=== PATIENT | male | born 1960 | race Caucasian/White ===

== ENCOUNTER 2018-05-01 11:02 | Emergency (ER) | payer MEDICAID ==
[~2018-05-01] VITALS: Ht 182.9 cm; Wt 81.7 kg
[~2018-05-01 11:02] MED LIST: ADV50100 IH; CARI350T PO; NORCO10T PO; TIOT18CA7 IH
[2018-05-01 11:14] VITALS: BP 145/85
[2018-05-01] MEDS ORDERED: neomy sulf/polymyx B sulf/HC 10ml otic suspension RIGHT EAR ONE (13:05)
== END 2018-05-01 13:24 | disposition home or self-care (01) ==
LOC: ER 11:02
DX: T16.1XXA Foreign body in right ear, initial encounter (principal); J44.9 Chronic obstructive pulmonary disease, unspecified; G89.29 Other chronic pain; M54.9 Dorsalgia, unspecified; F17.200 Nicotine dependence, unspecified, uncomplicated; Z98.890 Other specified postprocedural states; Z79.899 Other long term (current) drug therapy; Y92.9 Unspecified place or not applicable
CPT/HCPCS: 69200; 99284

== ENCOUNTER 2019-01-05 18:00 | Inpatient (IN) | payer MEDICAID ==
[~2019-01-05] VITALS: Ht 185.4 cm; Wt 86.4 kg
[~2019-01-05 18:00] MED LIST changes: +NAPR-56 PO
[2019-01-05 18:58] LABS: BASOPHILS # (AUTO) 0.1 X10'3 (0-0.2); BASOPHILS % (AUTO) 1.4 % (0-1); EOSINOPHILS # (AUTO) 0.1 X10'3 (0-0.9); EOSINOPHILS % (AUTO) 0.7 % (0-6); HEMATOCRIT 43.2 % (42.0-52.0); HEMOGLOBIN 14.7 g/dl (14.0-17.9); LYMPHOCYTES # (AUTO) 0.2 X10'3 (1.1-4.8); LYMPHOCYTES % (AUTO) 2.8 % (21-51); MEAN CORPUSCULAR VOLUME 94.2 FL (78-98); MEAN PLATELET VOLUME 8.1 FL (7.4-10.4); MONOCYTES # (AUTO) 1.1 X10'3 (0-0.9); MONOCYTES % (AUTO) 11.9 % (2-12); NEUTROPHILS # (AUTO) 7.4 X10'3 (1.8-7.7); NEUTROPHILS % (AUTO) 83.2 % (42-75); PLATELET COUNT 218 X10'3 (140-440); RED BLOOD COUNT 4.59 X10'6 (4.70-6.10); WHITE BLOOD COUNT 8.9 X10'3 (4.5-11.0)
[2019-01-05 19:10] LABS: ALANINE AMINOTRANSFERASE 17 U/L (12-78); ALBUMIN 3.6 G/DL (3.4-5.0); ALBUMIN/GLOBULIN RATIO 1.1 (1.1-1.5); ALKALINE PHOSPHATASE 68 IU/L (46-116); ANION GAP 8 (8-16); ASPARTATE AMINO TRANSFERASE 28 U/L (10-37); BILIRUBIN,TOTAL 0.3 MG/DL (0.1-1.0); BLOOD UREA NITROGEN 23 MG/DL (7-18); BUN/CREATININE RATIO 25.8 (5.4-32.0); CALCIUM 8.7 MG/DL (8.5-10.1); CHLORIDE 103 MMOL/L (99-107); CREATININE 0.89 MG/DL (0.60-1.10); GLUCOSE 128 MG/DL (70-104); PARTIAL THROMBOPLASTIN TIME 32 SECONDS (22-32); POTASSIUM 3.9 MMOL/L (3.5-5.1); PROTHROMBIN TIME 9.9 SECONDS (9.0-12.0); SODIUM 138 MMOL/L (135-145); TOTAL CARBON DIOXIDE 27.5 MMOL/L (24-32); TOTAL PROTEIN 6.9 G/DL (6.4-8.2); eGFR 87 ML/MIN
[2019-01-05] MEDS ORDERED: azithromycin/NS 500mg/250ml 250 ML IV ONE (19:10)
[2019-01-05] MEDS ORDERED: normal saline 1000ML IV soln IVB ONE (19:10)
[2019-01-05] MEDS ORDERED: methylPREDNISolone sod succ 125mg/2ml vial IV ONE (19:10)
[2019-01-05] MEDS ORDERED: albuterol 2.5 MG/3 ML nebule CONTNEB PRN (19:10)
[2019-01-05 20:03] LABS: CLARITY,URINE CLEAR (Clear); COLOR,URINE YELLOW (Yellow); GLUCOSE, URINE NEGATIVE (Neg); KETONES,URINE NEGATIVE (Neg); LEUKOCYTE ESTERASE ,URINE NEGATIVE (Neg); NITRITES, URINE NEGATIVE (Neg); OCCULT BLOOD,URINE NEGATIVE (Neg); PROTEIN,URINE TRACE mg/dl (Neg); UROBILINOGEN,URINE 0.2 E.U/dL (0.2-1.0)
[2019-01-05 20:15] LABS: UA COLLECTION TYPE VOIDED
[2019-01-05 20:16] LABS: BACTERIA,URINE FEW /HPF (Neg); RBC,URINE 0-2 /HPF (0-2); SQUAMOUS EPITHELIAL CELL,UR FEW /LPF (FEW); WBC,URINE 0-4 /HPF (0-4)
[2019-01-05] MEDS ORDERED: magnesium 4gm in 100ml NS 100 ML IV PRN (20:20)
[2019-01-05] MEDS ORDERED: potassium Cl 20 mEq SR tablet PO PRN ×2 (20:20)
[2019-01-05] MEDS ORDERED: mag hydrox/Alum hydrox/simeth 30ml oral suspension PO PRN (20:20)
[2019-01-05] MEDS ORDERED: acetaminophen 325mg tablet PO PRN ×2 (20:20)
[2019-01-05] MEDS ORDERED: ondansetron/PF 4mg/2ml inj IV PRN (20:20)
[2019-01-05] MEDS ORDERED: magnesium hydroxide 30ml (MOM) UD suspension PO PRN (20:20)
[2019-01-05] MEDS ORDERED: magnesium 2GM in 50ml NS 50 ML IV PRN (20:20)
[2019-01-05] MEDS ORDERED: magnesium Cl slow-release 64mg tablet PO PRN (20:20)
[2019-01-05] MEDS ORDERED: potassium Cl 40MEQ/NS 500ml 500 ML IV PRN ×2 (20:20)
[2019-01-05] MEDS ORDERED: FLUT100D2 INH (20:45)
[2019-01-05] MEDS ORDERED: CEFU500T66 PO (20:45)
[2019-01-05] MEDS ORDERED: PHE12.5R RC (20:45)
[2019-01-05] MEDS ORDERED: P EP PO (20:45)
--- NOTE | 2019-01-05 20:59 | NUR ---
PT PLACED ON HOSPITAL BED FOR COMFORT
--- NOTE | 2019-01-05 21:31 | NUR ---
cardiac us underway w/ dr Valdez & hospitalist.
--- NOTE | 2019-01-05 21:48 | NUR ---
assisted pt to bathroom; returned readily to bed. Orthostatic dizziness noted from seated to standing position, which passed shortly. Also increased sob observed with walk to bathroom. BS commode to be obtained going forward to reduce incidence of sob with toileting hygiene.
[2019-01-05] MEDS ORDERED: ipratropium/albuterol 3ml nebule NEB PRN (22:50)
[2019-01-05] MEDS ORDERED: nicotine 21mg patch - 24 hr TD ONE (22:50)
[2019-01-05] MEDS: ipratropium/albuterol 3ml nebule NEB SCH (23:26)
--- NOTE | 2019-01-06 00:27 | NUR ---
Spoke w/ Shiraz, Pharmacist who will be retiming Nicotine Patch to the AM as pt is asleep.
[2019-01-06] MEDS: methylPREDNISolone sod succ/PF 40mg inj. IV SCH ×3 (00:41→18:39)
--- NOTE | 2019-01-06 02:27 | NUR ---
Sister Tamera: [phone].
[2019-01-06] MEDS: ipratropium/albuterol 3ml nebule NEB SCH ×6 (03:08→23:43)
[2019-01-06] MEDS: K and/or MAG REPLACEMENT MC SCH (08:00)
[2019-01-06] MEDS ORDERED: nicotine 21mg patch - 24 hr TD ONE (08:00)
[2019-01-06] MEDS ORDERED: naproxen 500mg tablet PO SCH (08:00)
[2019-01-06] MEDS: proMETHazine 12.5mg rectal suppository RC SCH ×2 (08:00→20:00)
[2019-01-06 08:26] LABS: BASOPHILS % (AUTO) 0.4 % (0-1); EOSINOPHILS % (AUTO) 0 % (0-6); HEMATOCRIT 41.3 % (42.0-52.0); HEMOGLOBIN 14.2 g/dl (14.0-17.9); LYMPHOCYTES # (AUTO) 0.2 X10'3 (1.1-4.8); LYMPHOCYTES % (AUTO) 2.5 % (21-51); MEAN CORPUSCULAR HEMOGLOBIN 32.7 PG (27.0-31.0); MEAN CORPUSCULAR HGB CONC 34.5 g/dL (33.0-36.5); MEAN CORPUSCULAR VOLUME 94.8 FL (78-98); MEAN PLATELET VOLUME 8.3 FL (7.4-10.4); MONOCYTES # (AUTO) 0.2 X10'3 (0-0.9); MONOCYTES % (AUTO) 2.6 % (2-12); NEUTROPHILS # (AUTO) 8.9 X10'3 (1.8-7.7); NEUTROPHILS % (AUTO) 94.5 % (42-75); PLATELET COUNT 201 X10'3 (140-440); RED BLOOD COUNT 4.36 X10'6 (4.70-6.10); RED CELL DISTRIBUTION WIDTH 14.2 % (11.5-14.5); WHITE BLOOD COUNT 9.4 X10'3 (4.5-11.0)
[2019-01-06] MEDS: enoxaparin 40mg/0.4ml syringe SQ SCH (08:38)
[2019-01-06] MEDS: levoFLOXACIN-Levaquin 500mg/D5 100 ML IV SCH (08:45)
[2019-01-06] MEDS: HYDROcodone/acetaminophen 5mg/325mg tablet PO PRN ×2 (08:45→17:18)
[2019-01-06 08:50] LABS: ALBUMIN 3.3 G/DL (3.4-5.0); ANION GAP 11 (8-16); BLOOD UREA NITROGEN 16 MG/DL (7-18); BUN/CREATININE RATIO 19.8 (5.4-32.0); CALCIUM 8.6 MG/DL (8.5-10.1); CHLORIDE 104 MMOL/L (99-107); CREATININE 0.81 MG/DL (0.60-1.10); GLUCOSE 183 MG/DL (70-104); POTASSIUM 3.8 MMOL/L (3.5-5.1); SODIUM 141 MMOL/L (135-145); TOTAL CARBON DIOXIDE 26.3 MMOL/L (24-32); eGFR > 90 ML/MIN
[2019-01-06] MEDS: HYDROcodone/acetaminophen 10/325mg tab PO PRN ×2 (13:15→20:45)
[2019-01-06] MEDS ORDERED: naproxen 500mg tablet PO PRN (14:25)
--- NOTE | 2019-01-06 18:19 | NUR ---
attempted to call report to surgical unit, no nurse available to take report until after shift change
--- NOTE | 2019-01-06 19:00 | NUR ---
PATIENT ADMITTED TO ROOM 349A FROM ER FOR ACUTE COPD EXACERBATION. PLACED COMFORTABLE IN BED. VITAL SIGNS TAKEN AND RECORDED..
[2019-01-06 20:00] VITALS: BP 150/84
[2019-01-06] MEDS ORDERED: [UNRECOGNIZED DRUG - OTHER] PO SCH (21:00)
[2019-01-06] MEDS ORDERED: P EPHED HCL PO SCH (21:00)
[2019-01-07] VITALS: BP 135/80
[2019-01-07] MEDS: methylPREDNISolone sod succ/PF 40mg inj. IV SCH ×4 (02:00→23:34)
[2019-01-07] MEDS: ipratropium/albuterol 3ml nebule NEB SCH ×5 (02:45→23:30)
[2019-01-07 06:18] LABS: BASOPHILS % (AUTO) 0.1 % (0-1); EOSINOPHILS % (AUTO) 0 % (0-6); HEMATOCRIT 41.4 % (42.0-52.0); HEMOGLOBIN 13.5 g/dl (14.0-17.9); LYMPHOCYTES # (AUTO) 0.2 X10'3 (1.1-4.8); LYMPHOCYTES % (AUTO) 1.4 % (21-51); MEAN CORPUSCULAR HEMOGLOBIN 31.4 PG (27.0-31.0); MEAN CORPUSCULAR HGB CONC 32.6 g/dL (33.0-36.5); MEAN CORPUSCULAR VOLUME 96.3 FL (78-98); MEAN PLATELET VOLUME 8.8 FL (7.4-10.4); MONOCYTES # (AUTO) 1.1 X10'3 (0-0.9); MONOCYTES % (AUTO) 6.9 % (2-12); NEUTROPHILS # (AUTO) 14.3 X10'3 (1.8-7.7); NEUTROPHILS % (AUTO) 91.6 % (42-75); PLATELET COUNT 196 X10'3 (140-440); RED CELL DISTRIBUTION WIDTH 14.5 % (11.5-14.5); WHITE BLOOD COUNT 15.6 X10'3 (4.5-11.0)
--- NOTE | 2019-01-07 06:20 | NUR ---
Patient in room [facility]. I have received report from Erin Khan RN and had the opportunity to ask questions and assume patient care. Patient in bed resting, bed low, locked, call light in reach
[2019-01-07 06:24] LABS: ALBUMIN 3.2 G/DL (3.4-5.0); ANION GAP 7 (8-16); BLOOD UREA NITROGEN 25 MG/DL (7-18); BUN/CREATININE RATIO 27.5 (5.4-32.0); CALCIUM 8.2 MG/DL (8.5-10.1); CHLORIDE 105 MMOL/L (99-107); CREATININE 0.91 MG/DL (0.60-1.10); GLUCOSE 194 MG/DL (70-104); MAGNESIUM 1.9 MG/DL (1.5-2.4); POTASSIUM 3.9 MMOL/L (3.5-5.1); SODIUM 139 MMOL/L (135-145); TOTAL CARBON DIOXIDE 26.9 MMOL/L (24-32); eGFR 85 ML/MIN
--- NOTE | 2019-01-07 06:30 | NUR ---
Problems reprioritized. Patient report given, questions answered & plan of care reviewed with RAPHAEL HERBERT.
[2019-01-07 07:30] VITALS: BP 116/75
[2019-01-07 07:44] LABS: ANISOCYTOSIS 1+; PLATELET ESTIMATE NORMAL; TOTAL CELLS COUNTED 100
[2019-01-07] MEDS: K and/or MAG REPLACEMENT MC SCH (08:00)
[2019-01-07] MEDS: proMETHazine 12.5mg rectal suppository RC SCH (08:00)
[2019-01-07] MEDS: levoFLOXACIN-Levaquin 500mg/D5 100 ML IV SCH (09:17)
[2019-01-07] MEDS: enoxaparin 40mg/0.4ml syringe SQ SCH (09:18)
[2019-01-07] MEDS: HYDROcodone/acetaminophen 10/325mg tab PO PRN ×3 (09:21→19:54)
[2019-01-07 11:55] VITALS: BP 143/82
[2019-01-07] MEDS: nicotine 21mg patch - 24 hr TD SCH (14:01)
--- NOTE | 2019-01-07 18:20 | NUR ---
Problems reprioritized. Patient report given, Lc HERBERT questions answered & plan of care reviewed with . Patient in bed eating dinner, bed low, locked call light in reach
[2019-01-07 18:50] VITALS: BP 149/91
[2019-01-08] VITALS: BP 143/79
[2019-01-08] MEDS: ipratropium/albuterol 3ml nebule NEB SCH ×6 (03:04→23:34)
[2019-01-08 06:10] LABS: BASOPHILS % (AUTO) 0.1 % (0-1); EOSINOPHILS % (AUTO) 0 % (0-6); HEMATOCRIT 40.8 % (42.0-52.0); HEMOGLOBIN 13.5 g/dl (14.0-17.9); LYMPHOCYTES # (AUTO) 0.3 X10'3 (1.1-4.8); LYMPHOCYTES % (AUTO) 1.6 % (21-51); MEAN CORPUSCULAR HEMOGLOBIN 31.7 PG (27.0-31.0); MEAN CORPUSCULAR HGB CONC 33.1 g/dL (33.0-36.5); MEAN CORPUSCULAR VOLUME 95.7 FL (78-98); MONOCYTES # (AUTO) 0.7 X10'3 (0-0.9); MONOCYTES % (AUTO) 4.3 % (2-12); NEUTROPHILS # (AUTO) 14.4 X10'3 (1.8-7.7); PLATELET COUNT 207 X10'3 (140-440); RED BLOOD COUNT 4.26 X10'6 (4.70-6.10); RED CELL DISTRIBUTION WIDTH 14.3 % (11.5-14.5); WHITE BLOOD COUNT 15.4 X10'3 (4.5-11.0)
--- NOTE | 2019-01-08 06:10 | NUR ---
Patient in room [facility]. I have received report from KEON Platt and had the opportunity to ask questions and assume patient care.
[2019-01-08 06:27] LABS: ANION GAP 7 (8-16); BLOOD UREA NITROGEN 26 MG/DL (7-18); BUN/CREATININE RATIO 31.3 (5.4-32.0); CALCIUM 8.5 MG/DL (8.5-10.1); CHLORIDE 105 MMOL/L (99-107); CREATININE 0.83 MG/DL (0.60-1.10); GLUCOSE 173 MG/DL (70-104); SODIUM 139 MMOL/L (135-145); TOTAL CARBON DIOXIDE 27.3 MMOL/L (24-32); eGFR > 90 ML/MIN
--- NOTE | 2019-01-08 06:32 | NUR ---
Problems reprioritized. Patient report given, questions answered & plan of care reviewed with JERICA. Addendum: 01/08/19 at 0633 by Milton Capone RN Amended: Links added.
--- NOTE | 2019-01-08 06:34 | NUR ---
Problems reprioritized. Patient report given, questions answered & plan of care reviewed with JERICA. Addendum: 01/08/19 at 0634 by Milton Capone RN Amended: Links added.
--- NOTE | 2019-01-08 06:47 | NUR ---
Patient in room [facility]. I have received report from Lc HERBERT and had the opportunity to ask questions and assume patient care.
[2019-01-08 06:52] VITALS: BP 132/88
[2019-01-08] MEDS: K and/or MAG REPLACEMENT MC SCH (07:10)
[2019-01-08] MEDS: enoxaparin 40mg/0.4ml syringe SQ SCH (07:24)
[2019-01-08] MEDS: nicotine 21mg patch - 24 hr TD SCH (07:25)
[2019-01-08] MEDS: levoFLOXACIN-Levaquin 500mg/D5 100 ML IV SCH (07:27)
[2019-01-08] MEDS: methylPREDNISolone sod succ/PF 40mg inj. IV SCH ×2 (07:27→16:42)
[2019-01-08] MEDS: HYDROcodone/acetaminophen 10/325mg tab PO PRN ×4 (07:31→21:01)
[2019-01-08 09:18] LABS: PLATELET ESTIMATE NORMAL; TOTAL CELLS COUNTED 100
[2019-01-08 12:00] VITALS: BP 151/80
--- NOTE | 2019-01-08 12:00 | NUR ---
Patient in room [facility]. I have received report from Natalie Student Nurse and Abimbola RN and had the opportunity to ask questions and assume patient care.
--- NOTE | 2019-01-08 12:11 | NUR ---
Student documentation: I have reviewed and agree with all interventions, assessments performed and documented by Natalie, acute care nursing assistant.
--- NOTE | 2019-01-08 12:11 | NUR ---
Student Medication Administration: For this medication-pass time frame, all medication were reviewed, dispensed, administered and documented per hospital policy by Natalie nursing assistants teacher.
--- NOTE | 2019-01-08 12:16 | NUR ---
Problems reprioritized. Patient report given, questions answered & plan of care reviewed with Abimbola HERBERT.
--- NOTE | 2019-01-08 16:07 | NUR ---
Student documentation: I have reviewed and agree with all interventions, assessments performed and documented by Aleida student nurse.
[2019-01-08] MEDS ORDERED: temazepam 15mg capsule PO PRN (17:50)
--- NOTE | 2019-01-08 18:11 | NUR ---
Problems reprioritized. Patient report given, questions answered & plan of care reviewed with KEON Platt.
[2019-01-08 18:40] VITALS: BP 153/85
[2019-01-09] VITALS: BP 127/79
[2019-01-09] MEDS: ipratropium/albuterol 3ml nebule NEB SCH ×4 (03:31→16:19)
--- NOTE | 2019-01-09 04:34 | NUR ---
PT VOIDING NORMALLY WITH NORMAL QUANTITIES Addendum: 01/09/19 at 0441 by Milton Capone RN Amended: Links added.
[2019-01-09 05:34] LABS: BASOPHILS % (AUTO) 0.4 % (0-1); EOSINOPHILS % (AUTO) 0 % (0-6); HEMATOCRIT 40.3 % (42.0-52.0); HEMOGLOBIN 13.7 g/dl (14.0-17.9); LYMPHOCYTES # (AUTO) 0.5 X10'3 (1.1-4.8); LYMPHOCYTES % (AUTO) 3.8 % (21-51); MEAN CORPUSCULAR HEMOGLOBIN 32.4 PG (27.0-31.0); MEAN CORPUSCULAR HGB CONC 34.1 g/dL (33.0-36.5); MEAN PLATELET VOLUME 8.9 FL (7.4-10.4); MONOCYTES # (AUTO) 1.1 X10'3 (0-0.9); MONOCYTES % (AUTO) 8.4 % (2-12); NEUTROPHILS # (AUTO) 11.6 X10'3 (1.8-7.7); NEUTROPHILS % (AUTO) 87.4 % (42-75); PLATELET COUNT 195 X10'3 (140-440); RED BLOOD COUNT 4.24 X10'6 (4.70-6.10); WHITE BLOOD COUNT 13.3 X10'3 (4.5-11.0)
[2019-01-09 06:06] LABS: ANION GAP 8 (8-16); BLOOD UREA NITROGEN 25 MG/DL (7-18); BUN/CREATININE RATIO 28.7 (5.4-32.0); CALCIUM 8.8 MG/DL (8.5-10.1); CHLORIDE 104 MMOL/L (99-107); CREATININE 0.87 MG/DL (0.60-1.10); GLUCOSE 139 MG/DL (70-104); POTASSIUM 3.9 MMOL/L (3.5-5.1); SODIUM 140 MMOL/L (135-145); TOTAL CARBON DIOXIDE 27.7 MMOL/L (24-32); eGFR 90 ML/MIN
--- NOTE | 2019-01-09 06:19 | NUR ---
Problems reprioritized. Patient report given, questions answered & plan of care reviewed with RIP. Addendum: 01/09/19 at 0619 by Milton Capone RN Amended: Links added.
--- NOTE | 2019-01-09 06:31 | NUR ---
Patient in room [facility]. I have received report from KEON OLMEDO and had the opportunity to ask questions and assume patient care.
[2019-01-09 07:00] VITALS: BP 144/89
[2019-01-09] MEDS: levoFLOXACIN-Levaquin 500mg/D5 100 ML IV SCH (07:47)
[2019-01-09] MEDS: enoxaparin 40mg/0.4ml syringe SQ SCH (07:47)
[2019-01-09] MEDS: HYDROcodone/acetaminophen 10/325mg tab PO PRN ×2 (07:54→15:37)
[2019-01-09] MEDS: K and/or MAG REPLACEMENT MC SCH (08:00)
[2019-01-09] MEDS ORDERED: predniSONE 20 mg tablet PO SCH (08:00)
[2019-01-09] MEDS: nicotine 21mg patch - 24 hr TD SCH (08:43)
[2019-01-09 11:49] VITALS: BP 116/83
[2019-01-09] MEDS ORDERED: NICO-687 TD (14:37)
[2019-01-09] MEDS ORDERED: PRED20TA PO (14:37)
[2019-01-09] MEDS ORDERED: LEVO750T21 PO (14:37)
--- NOTE | 2019-01-09 17:04 | NUR ---
Discussed with patient discharge instructions and new prescriptions. Patient verbalized understanding of teachings. Patient dc'd with all personal belongings. New prescriptions delivered to patient by [facility] delivery service staff, [place]. Patient was dc'd via wheelchair accompanied by x1 nursing home assistant.
== END 2019-01-09 17:00 | disposition home or self-care (01) | DRG 139 ==
LOC: ER 18:02 → ED HOLD 20:19 → SUR 3N 01-06 18:48
PROVIDERS: ADMIT Hospitalist; ATTEND Family Medicine
DX: J18.9 Pneumonia, unspecified organism (principal); J96.01 Acute respiratory failure with hypoxia; D64.9 Anemia, unspecified; F17.210 Nicotine dependence, cigarettes, uncomplicated; G89.29 Other chronic pain; J44.0 Chronic obstructive pulmonary disease with (acute) lower respiratory infection; J44.1 Chronic obstructive pulmonary disease with (acute) exacerbation; M54.9 Dorsalgia, unspecified; Z71.6 Tobacco abuse counseling; Z79.899 Other long term (current) drug therapy
CPT/HCPCS: 36415; 71045; 80048; 80053; 81001; 83605; 83735; 84145; 85025; 85610; 85651; 85730; 87040; 87070; 93005; 93306; 94640; 94667; 94668; 94760; 96365; 96375; 99285; G0378; J0456; J1650; J1956; J2920; J2930; J7512

== ENCOUNTER 2019-01-17 10:50 | Emergency (ER) | payer MEDICAID ==
[~2019-01-17] VITALS: Ht 185.4 cm; Wt 86.3 kg
[~2019-01-17 10:50] MED LIST changes: -ADV50100 IH; -CARI350T PO; +LEVO750T21 PO; -NAPR-56 PO; +NICO-687 TD; -NORCO10T PO; +P EP PO; +PHE12.5R RC; +PRED20TA PO; -TIOT18CA7 IH
[2019-01-17 11:02] VITALS: BP 123/82
[2019-01-17] MEDS ORDERED: diphenhydrAMINE 25mg capsule PO ONE (11:50)
[2019-01-17] MEDS ORDERED: PRED10TA PO (12:03)
== END 2019-01-17 12:21 | disposition home or self-care (01) ==
LOC: ER 10:51
DX: J04.0 Acute laryngitis (principal); J44.9 Chronic obstructive pulmonary disease, unspecified; G89.29 Other chronic pain; F17.200 Nicotine dependence, unspecified, uncomplicated; Z98.890 Other specified postprocedural states; Z79.899 Other long term (current) drug therapy
CPT/HCPCS: 87081; 87880; 99283; Q0163

== ENCOUNTER 2019-08-31 11:06 | Emergency (ER) | payer MEDICAID ==
[~2019-08-31] VITALS: Ht 185.4 cm; Wt 81.8 kg
[~2019-08-31 11:06] MED LIST changes: -LEVO750T21 PO; +PRED10TA PO
--- NOTE | 2019-08-31 11:17 | NUR ---
Patient did not hit his head, no LOC, no anticoagulants. Fell from approx. 3 feet off of a ladder, stated that he hit his finger on a bucket rim.
[2019-08-31 12:01] VITALS: BP 154/78
[2019-08-31] MEDS ORDERED: HYDR-3965 PO (12:22)
== END 2019-08-31 12:42 | disposition home or self-care (01) ==
LOC: ER 11:06
DX: S63.282A Dislocation of proximal interphalangeal joint of right middle finger, initial encounter (principal); J44.9 Chronic obstructive pulmonary disease, unspecified; G89.29 Other chronic pain; Z79.899 Other long term (current) drug therapy; W11.XXXA Fall on and from ladder, initial encounter; Y93.89 Activity, other specified; Y92.89 Other specified places as the place of occurrence of the external cause; Y99.9 Unspecified external cause status
CPT/HCPCS: 26770; 73130; 73140; 99284

== ENCOUNTER 2020-06-19 07:25 | Inpatient (IN) | payer MEDICAID ==
[~2020-06-19] VITALS: Ht 185.4 cm; Wt 71.0 kg
[2020-06-19] MEDS ORDERED: piperacillin/tazo 3.375gm/50ml 50 ML IV ONE (08:00)
[2020-06-19] MEDS ORDERED: normal saline 1000ML IV soln IVB ONE (08:00)
--- NOTE | 2020-06-19 09:08 | NUR ---
iv start, labs drawn, ivf started and zosyn running
[2020-06-19 09:20] LABS: BASOPHILS # (AUTO) 0.1 X10'3 (0-0.2); EOSINOPHILS % (AUTO) 0.3 % (0-6); HEMATOCRIT 43.6 % (42.0-52.0); HEMOGLOBIN 14.5 g/dl (14.0-17.9); LYMPHOCYTES # (AUTO) 0.9 X10'3 (1.1-4.8); LYMPHOCYTES % (AUTO) 6.4 % (21-51); MEAN CORPUSCULAR HEMOGLOBIN 31.5 PG (27.0-31.0); MEAN CORPUSCULAR HGB CONC 33.2 g/dL (33.0-36.5); MEAN CORPUSCULAR VOLUME 94.8 FL (78-98); MEAN PLATELET VOLUME 8.5 FL (7.4-10.4); NEUTROPHILS # (AUTO) 11.6 X10'3 (1.8-7.7); NEUTROPHILS % (AUTO) 85.3 % (42-75); PLATELET COUNT 195 X10'3 (140-440); RED CELL DISTRIBUTION WIDTH 14.3 % (11.5-14.5); WHITE BLOOD COUNT 13.7 X10'3 (4.5-11.0)
[2020-06-19 09:35] LABS: ALANINE AMINOTRANSFERASE 16 U/L (12-78); ALBUMIN 3.3 G/DL (3.4-5.0); ALBUMIN/GLOBULIN RATIO 0.9 (1.1-1.5); ALKALINE PHOSPHATASE 78 IU/L (46-116); ANION GAP 10 (8-16); ASPARTATE AMINO TRANSFERASE 24 U/L (10-37); BILIRUBIN,TOTAL 0.3 MG/DL (0.1-1.0); BLOOD UREA NITROGEN 12 MG/DL (7-18); BUN/CREATININE RATIO 13.6 (5.4-32.0); CALCIUM 8.4 MG/DL (8.5-10.1); CHLORIDE 101 MMOL/L (99-107); CREATININE 0.88 MG/DL (0.60-1.10); GLUCOSE 101 MG/DL (70-104); POTASSIUM 3.8 MMOL/L (3.5-5.1); SODIUM 136 MMOL/L (135-145); TOTAL CARBON DIOXIDE 25.1 MMOL/L (24-32); eGFR 88 ML/MIN
[2020-06-19] MEDS ORDERED: morphine 4 MG/ML inj SYRINge IV ONE (09:45)
[2020-06-19] MEDS ORDERED: iohexol 300mg/ml 100ml inj. ONE (11:15)
--- NOTE | 2020-06-19 11:21 | NUR ---
pt to ct
[2020-06-19] MEDS ORDERED: TIOT18CA3 (12:04)
[2020-06-19] MEDS ORDERED: ALBU17AE26 (12:06)
[2020-06-19] MEDS ORDERED: BUDE10.2 INH (12:07)
[2020-06-19] MEDS ORDERED: ALBU8HFA PO (12:30)
[2020-06-19] MEDS ORDERED: TIOT18CA3 INH (12:50)
[2020-06-19] MEDS ORDERED: NABU500T2 PO (12:50)
[2020-06-19] MEDS ORDERED: OMEP20TA5 PO (12:50)
[2020-06-19] MEDS ORDERED: DOXE50CA4 PO (12:50)
[2020-06-19] MEDS ORDERED: BUSP5TAB3 PO (12:50)
[2020-06-19] MEDS ORDERED: magnesium 2GM in 50ml NS 50 ML IV PRN (13:05)
[2020-06-19] MEDS ORDERED: acetaminophen 650mg rectal suppository RC PRN (13:05)
[2020-06-19] MEDS ORDERED: magnesium 4gm in 100ml NS 100 ML IV PRN (13:05)
[2020-06-19] MEDS ORDERED: potassium Cl 20 mEq SR tablet PO PRN ×2 (13:05)
[2020-06-19] MEDS ORDERED: bisacodyl 10mg suppository rectal RC PRN (13:05)
[2020-06-19] MEDS ORDERED: mag hydrox/Alum hydrox/simeth 30ml oral suspension PO PRN (13:05)
[2020-06-19] MEDS ORDERED: HYDROcodone/acetaminophen 5mg/325mg tablet PO PRN (13:05)
[2020-06-19] MEDS ORDERED: acetaminophen 325mg tablet PO PRN ×2 (13:05)
[2020-06-19] MEDS ORDERED: magnesium Cl slow-release 64mg tablet PO PRN (13:05)
[2020-06-19] MEDS ORDERED: magnesium hydroxide 30ml (MOM) UD suspension PO PRN (13:05)
[2020-06-19] MEDS ORDERED: ondansetron/PF 4mg/2ml inj IV PRN (13:05)
[2020-06-19] MEDS ORDERED: morphine 2 MG/ML inj. syringe IV PRN ×2 (13:05)
[2020-06-19] MEDS ORDERED: potassium CL 10mEq/100ml bag 100 ML IV PRN ×2 (13:05)
[2020-06-19] MEDS ORDERED: diphenhydrAMINE 25mg capsule PO PRN (13:05)
[2020-06-19] MEDS ORDERED: ipratropium 0.5 MG/2.5ML nebule IH SCH (13:10)
[2020-06-19 13:37] LABS: HEMOGLOBIN A1C 6.2 % (4.5-6.2)
[2020-06-19] MEDS ORDERED: vancomycin/NS 1 GM ADD-VANTAGE 250 ML IV SCH (14:00)
[2020-06-19] MEDS: normal saline 1000ml 1,000 ML IV SCH (14:27)
[2020-06-19] MEDS: ipratropium/albuterol 3ml nebule IH SCH ×2 (14:45→20:52)
[2020-06-19] MEDS ORDERED: albuterol 2.5 MG/3 ML nebule NEB SCH (15:00)
[2020-06-19 16:19] VITALS: BP 120/67
[2020-06-19] MEDS: piperacillin/tazo 3.375gm/50ml 50 ML IV SCH (16:33)
[2020-06-19 18:00] VITALS: BP 118/63
--- NOTE | 2020-06-19 18:27 | NUR ---
Problems reprioritized. Patient report given, questions answered & plan of care reviewed with Guy HERBERT.
[2020-06-19 18:42] LABS: CLARITY,URINE CLEAR (Clear); COLOR,URINE YELLOW (Yellow); GLUCOSE, URINE NEGATIVE (Neg); KETONES,URINE NEGATIVE (Neg); LEUKOCYTE ESTERASE ,URINE NEGATIVE (Neg); NITRITES, URINE NEGATIVE (Neg); OCCULT BLOOD,URINE TRACE-INTACT (Neg); PH,URINE 6.5 (4.8-8.0); PROTEIN,URINE TRACE mg/dl (Neg)
[2020-06-19 18:46] LABS: UA COLLECTION TYPE URINAL
[2020-06-19 18:48] LABS: BACTERIA,URINE NONE SEEN /HPF (Neg); RBC,URINE 0-2 /HPF (0-2); SQUAMOUS EPITHELIAL CELL,UR FEW /LPF (FEW); WBC,URINE NONE SEEN /HPF (0-4)
--- NOTE | 2020-06-19 18:49 | NUR ---
I have received report from KEON Page and had the opportunity to ask questions and assume patient care.
[2020-06-19] MEDS: HYDROcodone/acetaminophen 10/325mg tab PO PRN (19:07)
[2020-06-19] MEDS: K and/or MAG REPLACEMENT MC SCH (20:00)
[2020-06-19] MEDS: busPIRone 5mg tablet PO SCH (20:00)
[2020-06-19] MEDS: heparin, porcine 5000 units/ml vial SQ SCH (20:35)
[2020-06-19] MEDS: budesonide 0.5mg/2ml UD nebule IH SCH (20:53)
[2020-06-19] MEDS: doxepin 25mg capsule PO SCH (21:00)
[2020-06-20] VITALS: BP_SYST 121; BP_SYST 125; BP_DIAS 68; BP_DIAS 78
[2020-06-20] MEDS: piperacillin/tazo 3.375gm/50ml 50 ML IV SCH ×4 (01:00→23:57)
[2020-06-20] MEDS: normal saline 1000ml 1,000 ML IV SCH ×3 (02:04→14:41)
[2020-06-20] MEDS: ipratropium/albuterol 3ml nebule IH SCH ×4 (02:33→21:07)
[2020-06-20 05:10] LABS: BASOPHILS # (AUTO) 0.1 X10'3 (0-0.2); EOSINOPHILS # (AUTO) 0.3 X10'3 (0-0.9); EOSINOPHILS % (AUTO) 3.2 % (0-6); HEMATOCRIT 41.2 % (42.0-52.0); HEMOGLOBIN 13.8 g/dl (14.0-17.9); LYMPHOCYTES % (AUTO) 9.9 % (21-51); MEAN CORPUSCULAR HEMOGLOBIN 32.5 PG (27.0-31.0); MEAN CORPUSCULAR HGB CONC 33.6 g/dL (33.0-36.5); MEAN CORPUSCULAR VOLUME 96.6 FL (78-98); MEAN PLATELET VOLUME 8.9 FL (7.4-10.4); MONOCYTES # (AUTO) 1.1 X10'3 (0-0.9); MONOCYTES % (AUTO) 10.9 % (2-12); NEUTROPHILS # (AUTO) 7.4 X10'3 (1.8-7.7); PLATELET COUNT 143 X10'3 (140-440); RED BLOOD COUNT 4.27 X10'6 (4.70-6.10); RED CELL DISTRIBUTION WIDTH 14.5 % (11.5-14.5); WHITE BLOOD COUNT 9.9 X10'3 (4.5-11.0)
[2020-06-20] MEDS: vancomycin/NS 1 GM ADD-VANTAGE 250 ML IV SCH (05:23)
[2020-06-20 05:33] LABS: ALANINE AMINOTRANSFERASE 17 U/L (12-78); ALBUMIN 2.6 G/DL (3.4-5.0); ALBUMIN/GLOBULIN RATIO 0.7 (1.1-1.5); ALKALINE PHOSPHATASE 71 IU/L (46-116); ANION GAP 11 (8-16); ASPARTATE AMINO TRANSFERASE 25 U/L (10-37); BILIRUBIN,TOTAL 0.2 MG/DL (0.1-1.0); BLOOD UREA NITROGEN 14 MG/DL (7-18); BUN/CREATININE RATIO 14.1 (5.4-32.0); CALCIUM 7.6 MG/DL (8.5-10.1); CHLORIDE 104 MMOL/L (99-107); CHOL/HDL RATIO 2.4 (0.00-4.99); CHOLESTEROL 142 MG/DL (0-200); CREATININE 0.99 MG/DL (0.60-1.10); GLUCOSE 114 MG/DL (70-104); HDL CHOLESTEROL 59 MG/DL (35-60); LDL CHOLESTEROL 67 MG/DL (50-100); MAGNESIUM 2.1 MG/DL (1.5-2.4); SODIUM 138 MMOL/L (135-145); TOTAL CARBON DIOXIDE 23.3 MMOL/L (24-32); TOTAL PROTEIN 6.2 G/DL (6.4-8.2); TRIGLYCERIDES 79 MG/DL (20-135); eGFR 77 ML/MIN
[2020-06-20] MEDS: HYDROcodone/acetaminophen 10/325mg tab PO PRN ×3 (05:34→18:39)
--- NOTE | 2020-06-20 05:56 | NUR ---
I agree with Irene Foley [facility] DUSTY student documentation, and assessment.
[2020-06-20 06:07] LABS: POTASSIUM 4.2 MMOL/L (3.5-5.1)
--- NOTE | 2020-06-20 06:30 | NUR ---
Patient in room [facility]. I have received report from Guy HERBERT/Og OLSEN and had the opportunity to ask questions and assume patient care.
--- NOTE | 2020-06-20 06:32 | NUR ---
Problems reprioritized. Patient report given, questions answered & plan of care reviewed with KEON Palmer.
--- NOTE | 2020-06-20 06:34 | NUR ---
Report given with DUSTY Foley to KEON Palmer.
[2020-06-20] MEDS: K and/or MAG REPLACEMENT MC SCH ×2 (08:00→20:00)
[2020-06-20 08:07] VITALS: BP 120/80
[2020-06-20] MEDS: pantoprazole 40mg Tablet.DR PO SCH (09:09)
[2020-06-20] MEDS: busPIRone 5mg tablet PO SCH ×2 (09:10→20:00)
[2020-06-20] MEDS: nicotine 21mg patch - 24 hr TD SCH (09:12)
[2020-06-20] MEDS: heparin, porcine 5000 units/ml vial SQ SCH ×2 (09:14→20:28)
[2020-06-20] MEDS: budesonide 0.5mg/2ml UD nebule IH SCH ×2 (09:30→21:09)
[2020-06-20 11:30] VITALS: BP 110/69
[2020-06-20 18:00] VITALS: BP 130/74
--- NOTE | 2020-06-20 18:27 | NUR ---
Problems reprioritized. Patient report given, questions answered & plan of care reviewed with CARMELO HERBERT/HILDA OLSEN.
--- NOTE | 2020-06-20 19:19 | NUR ---
I have received report from KEON Palmer and had the opportunity to ask questions and assume patient care.
--- NOTE | 2020-06-20 19:48 | NUR ---
Patient in room [facility]. I have received report from Baltazar garcia and had the opportunity to ask questions and assume patient care..
[2020-06-20] MEDS: doxepin 25mg capsule PO SCH (20:28)
[2020-06-20] MEDS: lactobacillus rhamnosus 10,000 MMU CELLS/CAPSULE PO SCH (20:28)
[2020-06-21 00:16] VITALS: BP 125/78
[2020-06-21] MEDS: normal saline 1000ml 1,000 ML IV SCH ×2 (02:06→12:18)
[2020-06-21] MEDS: ipratropium/albuterol 3ml nebule IH SCH ×4 (02:34→21:05)
[2020-06-21] MEDS: vancomycin/NS 1 GM ADD-VANTAGE 250 ML IV SCH ×2 (05:10→16:30)
[2020-06-21] MEDS: HYDROcodone/acetaminophen 10/325mg tab PO PRN ×3 (05:20→20:10)
[2020-06-21 06:09] LABS: BASOPHILS # (AUTO) 0.1 X10'3 (0-0.2); BASOPHILS % (AUTO) 0.8 % (0-1); EOSINOPHILS # (AUTO) 0.3 X10'3 (0-0.9); EOSINOPHILS % (AUTO) 2.8 % (0-6); HEMATOCRIT 39.5 % (42.0-52.0); HEMOGLOBIN 13.2 g/dl (14.0-17.9); LYMPHOCYTES # (AUTO) 1.1 X10'3 (1.1-4.8); LYMPHOCYTES % (AUTO) 10.7 % (21-51); MEAN CORPUSCULAR HEMOGLOBIN 31.9 PG (27.0-31.0); MEAN CORPUSCULAR HGB CONC 33.3 g/dL (33.0-36.5); MEAN CORPUSCULAR VOLUME 95.5 FL (78-98); MEAN PLATELET VOLUME 8.8 FL (7.4-10.4); MONOCYTES # (AUTO) 1.3 X10'3 (0-0.9); MONOCYTES % (AUTO) 12.5 % (2-12); NEUTROPHILS # (AUTO) 7.7 X10'3 (1.8-7.7); NEUTROPHILS % (AUTO) 73.2 % (42-75); PLATELET COUNT 197 X10'3 (140-440); RED BLOOD COUNT 4.13 X10'6 (4.70-6.10); RED CELL DISTRIBUTION WIDTH 14.4 % (11.5-14.5); WHITE BLOOD COUNT 10.6 X10'3 (4.5-11.0)
--- NOTE | 2020-06-21 06:22 | NUR ---
Gave report with ADN yaya Foley. I have also reviewed all documentation and assessments and agree with them.
--- NOTE | 2020-06-21 06:59 | NUR ---
Problems reprioritized. Patient report given, questions answered & plan of care reviewed with KEON Gaspar.
[2020-06-21 07:00] LABS: ALBUMIN 2.6 G/DL (3.4-5.0); ALBUMIN/GLOBULIN RATIO 0.7 (1.1-1.5); GLUCOSE 110 MG/DL (70-104); PHOSPHORUS 3.6 MG/DL (2.3-4.5); TOTAL PROTEIN 6.6 G/DL (6.4-8.2)
[2020-06-21 07:19] LABS: ASPARTATE AMINO TRANSFERASE 4 U/L (10-37)
[2020-06-21 07:33] LABS: ALANINE AMINOTRANSFERASE 17 U/L (12-78); ALKALINE PHOSPHATASE 82 IU/L (46-116); ANION GAP 10 (8-16); BILIRUBIN,TOTAL 0.4 MG/DL (0.1-1.0); CALCIUM 8.5 MG/DL (8.5-10.1); CHLORIDE 104 MMOL/L (99-107); CREATININE 0.87 MG/DL (0.60-1.10); MAGNESIUM 1.9 MG/DL (1.5-2.4); POTASSIUM 3.7 MMOL/L (3.5-5.1); SODIUM 138 MMOL/L (135-145); TOTAL CARBON DIOXIDE 24.2 MMOL/L (24-32); eGFR 89 ML/MIN
[2020-06-21 07:43] LABS: BLOOD UREA NITROGEN 12 MG/DL (7-18); BUN/CREATININE RATIO 13.8 (5.4-32.0)
[2020-06-21 08:00] VITALS: BP 137/83
[2020-06-21] MEDS: K and/or MAG REPLACEMENT MC SCH ×2 (08:00→20:00)
[2020-06-21] MEDS: busPIRone 5mg tablet PO SCH (08:00)
[2020-06-21] MEDS: budesonide 0.5mg/2ml UD nebule IH SCH ×2 (08:05→21:08)
[2020-06-21] MEDS: lactobacillus rhamnosus 10,000 MMU CELLS/CAPSULE PO SCH ×2 (08:30→20:06)
[2020-06-21] MEDS: pantoprazole 40mg Tablet.DR PO SCH (08:30)
[2020-06-21] MEDS: heparin, porcine 5000 units/ml vial SQ SCH ×2 (08:31→20:06)
[2020-06-21] MEDS: nicotine 21mg patch - 24 hr TD SCH (08:33)
[2020-06-21] MEDS: piperacillin/tazo 3.375gm/50ml 50 ML IV SCH (08:34)
[2020-06-21 11:51] VITALS: BP 145/79
[2020-06-21] MEDS: CefTRIAXone 2gm/D5W 50ml 50 ML IV SCH (12:18)
--- NOTE | 2020-06-21 13:29 | NUR ---
Pt. denies being on a HH diet although educated and reminded by nursing staff. Ordered Alexsandra Meier for himself and roomate and had it delivered. Addendum: 06/21/20 at 1330 by Anali Martin RN Amended: Links added.
--- NOTE | 2020-06-21 18:14 | NUR ---
Patient in room [facility]. I have received report from Anali HERBERT and had the opportunity to ask questions and assume patient care.
--- NOTE | 2020-06-21 18:14 | NUR ---
Problems reprioritized. Patient report given, questions answered & plan of care reviewed with Bambi HERBERT.
[2020-06-21 20:00] VITALS: BP 145/80
[2020-06-21] MEDS: docusate sod 100mg capsule PO SCH (20:06)
[2020-06-21] MEDS: doxepin 25mg capsule PO SCH (20:06)
--- NOTE | 2020-06-21 21:08 | NUR ---
pt handed me his nicotine patch and stated "I don't want this one right now. I don't like what it is doing to my taste." will continue to monitor.
[2020-06-22] VITALS: BP 124/74
[2020-06-22] MEDS: normal saline 1000ml 1,000 ML IV SCH ×3 (01:01→21:01)
[2020-06-22] MEDS: ipratropium/albuterol 3ml nebule IH SCH ×4 (02:46→21:06)
[2020-06-22] MEDS: vancomycin/NS 1 GM ADD-VANTAGE 250 ML IV SCH ×2 (04:55→17:23)
[2020-06-22 05:18] LABS: ALANINE AMINOTRANSFERASE 13 U/L (12-78); ALBUMIN 2.4 G/DL (3.4-5.0); ALBUMIN/GLOBULIN RATIO 0.6 (1.1-1.5); ALKALINE PHOSPHATASE 77 IU/L (46-116); ANION GAP 5 (8-16); ASPARTATE AMINO TRANSFERASE 14 U/L (10-37); BILIRUBIN,TOTAL 0.4 MG/DL (0.1-1.0); BLOOD UREA NITROGEN 10 MG/DL (7-18); BUN/CREATININE RATIO 11.4 (5.4-32.0); CALCIUM 8.3 MG/DL (8.5-10.1); CHLORIDE 106 MMOL/L (99-107); CREATININE 0.88 MG/DL (0.60-1.10); GLUCOSE 112 MG/DL (70-104); HEMOGLOBIN 13.1 g/dl (14.0-17.9); MAGNESIUM 1.9 MG/DL (1.5-2.4); PHOSPHORUS 3.8 MG/DL (2.3-4.5); POTASSIUM 3.7 MMOL/L (3.5-5.1); SODIUM 139 MMOL/L (135-145); TOTAL CARBON DIOXIDE 28.1 MMOL/L (24-32); TOTAL PROTEIN 6.3 G/DL (6.4-8.2); eGFR 88 ML/MIN
[2020-06-22 05:20] LABS: BASOPHILS # (AUTO) 0.1 X10'3 (0-0.2); EOSINOPHILS # (AUTO) 0.4 X10'3 (0-0.9); EOSINOPHILS % (AUTO) 4.2 % (0-6); HEMATOCRIT 38.8 % (42.0-52.0); LYMPHOCYTES # (AUTO) 1.4 X10'3 (1.1-4.8); LYMPHOCYTES % (AUTO) 15.3 % (21-51); MEAN CORPUSCULAR HEMOGLOBIN 32.2 PG (27.0-31.0); MEAN CORPUSCULAR HGB CONC 33.8 g/dL (33.0-36.5); MEAN CORPUSCULAR VOLUME 95.2 FL (78-98); MEAN PLATELET VOLUME 7.7 FL (7.4-10.4); MONOCYTES # (AUTO) 1.4 X10'3 (0-0.9); MONOCYTES % (AUTO) 14.9 % (2-12); NEUTROPHILS % (AUTO) 64.6 % (42-75); PLATELET COUNT 225 X10'3 (140-440); RED BLOOD COUNT 4.07 X10'6 (4.70-6.10); WHITE BLOOD COUNT 9.3 X10'3 (4.5-11.0)
--- NOTE | 2020-06-22 06:17 | NUR ---
Patient in room [facility]. I have received report from Bambi HERBERT and had the opportunity to ask questions and assume patient care.
--- NOTE | 2020-06-22 06:47 | NUR ---
Problems reprioritized. Patient report given, questions answered & plan of care reviewed with Alejandra HERBERT.
[2020-06-22 07:00] VITALS: BP 159/93
[2020-06-22 07:30] VITALS: BP 145/85
[2020-06-22] MEDS: K and/or MAG REPLACEMENT MC SCH ×2 (08:00→20:00)
[2020-06-22] MEDS: nicotine 21mg patch - 24 hr TD SCH (08:00)
[2020-06-22] MEDS: CefTRIAXone 2gm/D5W 50ml 50 ML IV SCH (08:40)
[2020-06-22] MEDS: pantoprazole 40mg Tablet.DR PO SCH (08:41)
[2020-06-22] MEDS: heparin, porcine 5000 units/ml vial SQ SCH ×2 (08:41→20:16)
[2020-06-22] MEDS: docusate sod 100mg capsule PO SCH ×2 (08:41→20:09)
[2020-06-22] MEDS: lactobacillus rhamnosus 10,000 MMU CELLS/CAPSULE PO SCH ×2 (08:42→20:09)
[2020-06-22] MEDS: budesonide 0.5mg/2ml UD nebule IH SCH ×2 (09:20→21:07)
[2020-06-22 12:00] VITALS: BP 136/74
[2020-06-22] MEDS ORDERED: VANCOMYCIN LEVEL IV ONE (16:30)
[2020-06-22] MEDS: HYDROcodone/acetaminophen 10/325mg tab PO PRN ×2 (16:51→20:46)
--- NOTE | 2020-06-22 18:25 | NUR ---
Patient in room [facility]. I have received report from Alejandra HERBERT and had the opportunity to ask questions and assume patient care.
--- NOTE | 2020-06-22 18:27 | NUR ---
Problems reprioritized. Patient report given, questions answered & plan of care reviewed with Amparo Gunter RN.
[2020-06-22 19:30] VITALS: BP 133/71
[2020-06-22] MEDS: doxepin 25mg capsule PO SCH (20:09)
[2020-06-23] VITALS: BP 91/58
[2020-06-23] MEDS: normal saline 1000ml 1,000 ML IV SCH (01:40)
[2020-06-23] MEDS: HYDROcodone/acetaminophen 10/325mg tab PO PRN ×2 (01:40→08:00)
[2020-06-23] MEDS: ipratropium/albuterol 3ml nebule IH SCH ×2 (02:51→09:22)
[2020-06-23] MEDS: vancomycin/NS 1 GM ADD-VANTAGE 250 ML IV SCH (05:25)
--- NOTE | 2020-06-23 06:00 | NUR ---
Patient in room [facility]. I have received report from Amparo HERBERT and had the opportunity to ask questions and assume patient care.
[2020-06-23 06:26] LABS: ALANINE AMINOTRANSFERASE 16 U/L (12-78); ALBUMIN 2.2 G/DL (3.4-5.0); ALBUMIN/GLOBULIN RATIO 0.6 (1.1-1.5); ALKALINE PHOSPHATASE 74 IU/L (46-116); ANION GAP 7 (8-16); ASPARTATE AMINO TRANSFERASE 22 U/L (10-37); BILIRUBIN,TOTAL 0.2 MG/DL (0.1-1.0); BLOOD UREA NITROGEN 11 MG/DL (7-18); BUN/CREATININE RATIO 12.5 (5.4-32.0); CALCIUM 8.4 MG/DL (8.5-10.1); CHLORIDE 107 MMOL/L (99-107); CREATININE 0.88 MG/DL (0.60-1.10); GLUCOSE 92 MG/DL (70-104); MAGNESIUM 2.1 MG/DL (1.5-2.4); PHOSPHORUS 3.9 MG/DL (2.3-4.5); POTASSIUM 4.1 MMOL/L (3.5-5.1); SODIUM 141 MMOL/L (135-145); TOTAL CARBON DIOXIDE 26.6 MMOL/L (24-32); TOTAL PROTEIN 6.2 G/DL (6.4-8.2); eGFR 88 ML/MIN
--- NOTE | 2020-06-23 06:40 | NUR ---
Problems reprioritized. Patient report given, questions answered & plan of care reviewed with Lara HERBERT.
--- NOTE | 2020-06-23 06:55 | NUR ---
Patient in room [facility]. I have received report from Amparo HERBERT and had the opportunity to ask questions and assume patient care.
[2020-06-23 07:13] LABS: BASOPHILS # (AUTO) 0.1 X10'3 (0-0.2); BASOPHILS % (AUTO) 1.2 % (0-1); EOSINOPHILS # (AUTO) 0.4 X10'3 (0-0.9); HEMATOCRIT 40.3 % (42.0-52.0); HEMOGLOBIN 13.5 g/dl (14.0-17.9); LYMPHOCYTES # (AUTO) 1.3 X10'3 (1.1-4.8); LYMPHOCYTES % (AUTO) 19.5 % (21-51); MEAN CORPUSCULAR HEMOGLOBIN 32.1 PG (27.0-31.0); MEAN CORPUSCULAR HGB CONC 33.4 g/dL (33.0-36.5); MEAN CORPUSCULAR VOLUME 95.8 FL (78-98); MEAN PLATELET VOLUME 8.3 FL (7.4-10.4); MONOCYTES # (AUTO) 1.1 X10'3 (0-0.9); MONOCYTES % (AUTO) 15.8 % (2-12); NEUTROPHILS # (AUTO) 3.9 X10'3 (1.8-7.7); NEUTROPHILS % (AUTO) 57.5 % (42-75); PLATELET COUNT 204 X10'3 (140-440); RED BLOOD COUNT 4.21 X10'6 (4.70-6.10); RED CELL DISTRIBUTION WIDTH 14.4 % (11.5-14.5); WHITE BLOOD COUNT 6.8 X10'3 (4.5-11.0)
[2020-06-23 07:36] VITALS: BP 142/85
[2020-06-23] MEDS: pantoprazole 40mg Tablet.DR PO SCH (07:59)
[2020-06-23] MEDS: lactobacillus rhamnosus 10,000 MMU CELLS/CAPSULE PO SCH (07:59)
[2020-06-23] MEDS: docusate sod 100mg capsule PO SCH (07:59)
[2020-06-23] MEDS: nicotine 21mg patch - 24 hr TD SCH (08:00)
[2020-06-23] MEDS: K and/or MAG REPLACEMENT MC SCH (08:00)
[2020-06-23] MEDS: heparin, porcine 5000 units/ml vial SQ SCH (08:01)
[2020-06-23] MEDS: CefTRIAXone 2gm/D5W 50ml 50 ML IV SCH (08:01)
[2020-06-23 08:03] LABS: TOTAL CELLS COUNTED 100
[2020-06-23 08:04] LABS: PLATELET ESTIMATE NORMAL
[2020-06-23] MEDS: budesonide 0.5mg/2ml UD nebule IH SCH (09:22)
[2020-06-23 11:00] VITALS: BP 133/76
[2020-06-23] MEDS ORDERED: CEPH500C5 PO (11:16)
[2020-06-23] MEDS ORDERED: HYDR-4383 PO ×2 (11:16→11:17)
[2020-06-24] MEDS ORDERED: VANCOMYCIN LEVEL IV ONE (19:30)
== END 2020-06-23 13:14 | disposition home or self-care (01) | DRG 351 ==
LOC: ER 07:25 → ED HOLD 13:01 → SUR 3N 15:20
PROVIDERS: ADMIT Family Medicine; ATTEND Family Medicine
PROC: BQ2S1ZZ Computerized Tomography (CT Scan) of Left Lower Extremity using Low Osmolar Contrast (ICD-10-PCS; principal; 2020-06-19)
DX: M65.872 Other synovitis and tenosynovitis, left ankle and foot (principal); L03.116 Cellulitis of left lower limb; J43.9 Emphysema, unspecified; K21.9 Gastro-esophageal reflux disease without esophagitis; F17.210 Nicotine dependence, cigarettes, uncomplicated; M54.9 Dorsalgia, unspecified; G89.29 Other chronic pain; Z83.3 Family history of diabetes mellitus; Z87.39 Personal history of other diseases of the musculoskeletal system and connective tissue; Z98.1 Arthrodesis status; Z71.6 Tobacco abuse counseling
CPT/HCPCS: 36415; 71045; 73701; 80053; 80061; 80202; 81001; 83036; 83605; 83735; 84100; 84145; 85007; 85025; 87040; 87081; 93971; 94640; 94760; 99285; G0378; J0696; J1644; J2270; J2543; J3370; J7030; J7626; Q9967

== ENCOUNTER 2020-11-03 14:04 | Emergency (ER) | payer MEDICAID ==
[~2020-11-03] VITALS: Ht 185.4 cm; Wt 81.8 kg
[~2020-11-03 14:04] MED LIST changes: +ALBU8HFA PO; +BUDE10.2 INH; +BUSP5TAB3 PO; +CEPH500C5 PO; +DOXE50CA4 PO; +HYDR-4383 PO; +NABU-134 PO; +OMEP20TA5 PO; -P EP PO; -PHE12.5R RC; -PRED10TA PO; -PRED20TA PO; +TIOT18CA3 INH
[2020-11-03 16:45] VITALS: BP 119/46
[2020-11-03] MEDS ORDERED: IBUP-1984 PO (17:03)
[2020-11-03] MEDS ORDERED: AMOX-117 PO (17:03)
[2020-11-03] MEDS ORDERED: CIPR7.5D OT (17:03)
== END 2020-11-03 17:16 | disposition home or self-care (01) ==
LOC: ER 14:04
DX: H66.92 Otitis media, unspecified, left ear (principal); J44.9 Chronic obstructive pulmonary disease, unspecified; G89.29 Other chronic pain; Z98.890 Other specified postprocedural states; Z79.2 Long term (current) use of antibiotics; Z79.899 Other long term (current) drug therapy
CPT/HCPCS: 99283